=== PATIENT | male | born 1970 | race Caucasian/White ===

== ENCOUNTER → 2021-04-18 | Outpatient (CLI) | payer BC ==
--- NOTE | 2021-04-18 14:07 | EST ---
EXERCISE STRESS DATE OF SERVICE: April 18, 2016. AGE: 50 SEX: M HT: 5'10" WT: 235 lbs. PROTOCOL: Shashi STAGE: 2 DURATION OF EXERCISE: 6:00 HEART RATE REST: 121 BLOOD PRESSURE REST: 157/78 MAXIMUM HEART RATE ACHIEVED: 146 MAXIMUM BLOOD PRESSURE: 202/73 85% MPHR: 143 100% MPHR: 168 METS: 7.1 INDICATIONS: Chest pain CLINICAL INFORMATION: STRESS DATA: Heart rate is 121, pressure is 157/78 mmHg. Baseline EKG showed sinus mechanism. The patient exercised on the treadmill according to Shashi protocol for a total of 6 minutes and achieved 7.1 METS. Max heart rate was 142 which is about 87% of maximum predicted heart rate and maximum blood pressure was 202/73 mmHg. Clinically, the patient did not have any symptoms. The EKG showed about 0.[address]-segment changes. CONCLUSION: 1. Good exercise tolerance. 2. Abnormal EKG in response to exercise. 3. Overall abnormal stress test for the patient. MMODL / IJN: [id number] /
== END | disposition home or self-care (01) ==
LOC: RADNMMAIN 09:07
PROVIDERS: ATTEND Family Medicine
DX: R94.31 Abnormal electrocardiogram [ECG] [EKG] (principal)
CPT/HCPCS: 93017